=== PATIENT | male | born 1950 | race Caucasian/White ===

== ENCOUNTER → 2017-10-11 08:08 | Outpatient (CLI) | payer MEDICARE, SELFPAY ==
[2017-10-11 10:18] LABS: AST(SGOT) 10 U/L (15-37); Alanine Aminotransfer ALT/SGPT 15 U/L (16-61); Albumin, Serum 3.8 g/dL (3.2-5.0); Alkaline Phosphatase 64 U/L (45-117); Bilirubin, Direct 0.22 mg/dL (0.00-0.30); Cholesterol 106 mg/dL (200); Globulin 3.5 g/dL (2.2-4.2); High Density Lipoprotein 42 mg/dL; Protein, Total 7.3 g/dL (6.4-8.2); Triglycerides 63 mg/dL; Very Low Density Lipoprotein 13 mg/dL (5-40)
== END ==
PROVIDERS: Family Provider Family Medicine; PCP Family Medicine; Visit Provider Internal Medicine Cardiovascular Disease
DX: E78.5 Hyperlipidemia, unspecified (principal); C61 Malignant neoplasm of prostate; Z79.899 Other long term (current) drug therapy
CPT/HCPCS: 36415; 80061; 80076; 84153

== ENCOUNTER → 2017-11-05 10:48 | Outpatient (CLI) | payer MEDICARE, SELFPAY | PROVIDERS: Family Provider Family Medicine; PCP Family Medicine; Visit Provider Urology | DX: R97.20 Elevated prostate specific antigen [PSA] (principal) | CPT/HCPCS: 36415; 84153 ==

== ENCOUNTER → 2018-02-07 09:06 | Outpatient (CLI) | payer MEDICARE, SELFPAY | PROVIDERS: Family Provider Family Medicine; PCP Family Medicine; Referring Provider Urology; Visit Provider Urology | DX: R97.20 Elevated prostate specific antigen [PSA] (principal); C61 Malignant neoplasm of prostate | CPT/HCPCS: 36415; 84153 ==

== ENCOUNTER → 2018-08-06 10:20 | Outpatient (CLI) | payer MEDICARE, SELFPAY ==
[2018-03-05 14:08] VITALS: BMI 25.4
[2018-08-06 13:18] LABS: AST(SGOT) 19 U/L (15-37); Alanine Aminotransfer ALT/SGPT 20 U/L (16-61); Albumin, Serum 4.1 g/dL (3.2-5.0); Alkaline Phosphatase 56 U/L (45-117); Bilirubin, Direct 0.25 mg/dL (0.00-0.30); Cholesterol 130 mg/dL (200); Globulin 3.3 g/dL (2.2-4.2); High Density Lipoprotein 46 mg/dL; Protein, Total 7.4 g/dL (6.4-8.2); Triglycerides 83 mg/dL; Very Low Density Lipoprotein 17 mg/dL (5-40)
[2018-08-06 13:23] LABS: PSA,Total- Diagnostic 7.03 ng/mL (0.0-4.0)
== END ==
PROVIDERS: Internal Medicine Cardiovascular Disease; Family Provider Family Medicine; PCP Family Medicine; Referring Provider Urology; Visit Provider Urology
DX: R97.20 Elevated prostate specific antigen [PSA] (principal); C61 Malignant neoplasm of prostate; I10 Essential (primary) hypertension; E78.5 Hyperlipidemia, unspecified; R00.2 Palpitations; I25.10 Atherosclerotic heart disease of native coronary artery without angina pectoris; Z95.5 Presence of coronary angioplasty implant and graft
CPT/HCPCS: 36415; 80061; 80076; 84153

== ENCOUNTER → 2019-01-27 09:01 | Outpatient (CLI) | payer MEDICARE, SELFPAY ==
[2018-03-05 14:08] VITALS: BMI 25.4
[2019-01-27 12:36] LABS: AST(SGOT) 13 U/L (15-37); Alanine Aminotransfer ALT/SGPT 17 U/L (16-61); Alkaline Phosphatase 62 U/L (45-117); Bilirubin, Direct 0.22 mg/dL (0.00-0.30); Cholesterol 129 mg/dL (200); Globulin 3.3 g/dL (2.2-4.2); High Density Lipoprotein 46 mg/dL; Protein, Total 7.3 g/dL (6.4-8.2); Triglycerides 79 mg/dL; Very Low Density Lipoprotein 16 mg/dL (5-40)
[2019-01-27 12:50] LABS: Anion Gap 5 (5-15); BUN 20 mg/dL (7-18); BUN/Creat Ratio 17.7 RATIO (10-20); Calcium,Total 9.1 mg/dL (8.5-10.1); Chloride 106 mmol/L (98-107); Creatinine, Serum 1.13 mg/dL (0.70-1.30); EST Glomerular Filtration Rate 68 mL/min (>60); Est Glom Filt Rate - Afr Amer 82 mL/min (>60); Glucose 83 mg/dL (74-106); PSA,Total- Diagnostic 9.36 ng/mL (0.0-4.0); Sodium Level 140 mmol/L (136-145); Thyroid Stim Hormone (TSH) 3.59 uIU/mL (0.358-3.74)
== END ==
PROVIDERS: Internal Medicine Cardiovascular Disease; Family Provider Family Medicine; PCP Family Medicine; Referring Provider Urology; Visit Provider Urology
DX: R97.20 Elevated prostate specific antigen [PSA] (principal); C61 Malignant neoplasm of prostate; I25.10 Atherosclerotic heart disease of native coronary artery without angina pectoris; E03.9 Hypothyroidism, unspecified
CPT/HCPCS: 80048; 80061; 80076; 84153; 84443

== ENCOUNTER → 2019-09-02 09:24 | Outpatient (CLI) | payer MEDICARE, SELFPAY ==
[2019-02-27 08:08] VITALS: BMI 26.0
[2019-09-02 12:19] LABS: PSA,Total - Annual Screen 8.17 ng/mL (0.00-4.00)
[2019-09-02 12:20] LABS: AST(SGOT) 15 U/L (15-37); Alanine Aminotransfer ALT/SGPT 22 U/L (16-61); Albumin, Serum 4.1 g/dL (3.2-5.0); Alkaline Phosphatase 68 U/L (45-117); Bilirubin, Direct 0.16 mg/dL (0.00-0.30); Cholesterol 138 mg/dL (200); Globulin 3.5 g/dL (2.2-4.2); High Density Lipoprotein 49 mg/dL; Protein, Total 7.6 g/dL (6.4-8.2); Triglycerides 91 mg/dL; Very Low Density Lipoprotein 18 mg/dL (5-40)
== END ==
PROVIDERS: Internal Medicine Cardiovascular Disease; PCP Family Medicine; Referring Provider Urology; Visit Provider Urology
DX: Z12.5 Encounter for screening for malignant neoplasm of prostate (principal); E78.00 Pure hypercholesterolemia, unspecified; E78.5 Hyperlipidemia, unspecified
CPT/HCPCS: 36415; 80061; 80076; 84153; G0103

== ENCOUNTER → 2020-01-06 17:39 | Outpatient (CLI) | payer MEDICARE, SELFPAY ==
[2019-02-27 08:08] VITALS: BMI 26.0
[2020-01-06 17:42] LABS: Bacteria 0 SEEN /hpf (None Seen); Mucous, Urine 0 SEEN /hpf (<or=2+); Red Blood Cells-Urine 0 SEEN /hpf (0-5); Squamous Epithelial Cells - UA 0 SEEN /hpf (0-5); White Blood Cells 0 SEEN /hpf (0-5)
[2020-01-06 18:15] LABS: Color, Urine Yellow (Yellow); Glucose, Dipstick Normal (Normal); Ketone-Dipstick 5 mg/dl (Negative); Leukocyte Esterase-Dipstick 25 /ul (Negative); Nitrite-Dipstick Negative (Negative); Occult Blood-Urine 25 /ul (Negative); Protein-Dipstick Negative (Negative); Specific Gravity, Urine 1.015 (1.002-1.030); Urine Bilirubin Dipstick Negative (Negative); Urine Clarity Clear (Clear); Urine Urobilinogen Normal (Normal)
== END ==
PROVIDERS: Visit Provider Family Medicine
DX: N39.0 Urinary tract infection, site not specified (principal)
CPT/HCPCS: 81001; 87086

== ENCOUNTER → 2020-03-01 08:29 | Outpatient (CLI) | payer MEDICARE, SELFPAY ==
[2019-02-27 08:08] VITALS: BMI 26.0
[2020-03-01 10:39] LABS: AST(SGOT) 17 U/L (15-37); Alanine Aminotransfer ALT/SGPT 20 U/L (16-61); Albumin, Serum 3.9 g/dL (3.2-5.0); Alkaline Phosphatase 65 U/L (45-117); Bilirubin, Direct 0.23 mg/dL (0.00-0.30); Cholesterol 136 mg/dL (200); Globulin 3.4 g/dL (2.2-4.2); High Density Lipoprotein 53 mg/dL; Protein, Total 7.3 g/dL (6.4-8.2); Triglycerides 86 mg/dL; Very Low Density Lipoprotein 17 mg/dL (5-40)
[2020-03-01 10:55] LABS: PSA,Total- Diagnostic 8.04 ng/mL (0.0-4.0)
== END ==
PROVIDERS: Internal Medicine Cardiovascular Disease; Urology; PCP Family Medicine; Referring Provider Family Medicine; Visit Provider Family Medicine
DX: C61 Malignant neoplasm of prostate (principal); R97.20 Elevated prostate specific antigen [PSA]; E78.00 Pure hypercholesterolemia, unspecified; E78.5 Hyperlipidemia, unspecified
CPT/HCPCS: 36415; 80061; 80076; 84153; 84443

== ENCOUNTER → 2020-05-03 09:04 | Outpatient (CLI) | payer MEDICARE, SELFPAY ==
[2020-03-04 09:23] VITALS: BMI 26.0
[2020-05-06 09:01] LABS: Thyroid Stim Immunoglob <0.10 IU/L (0.00-0.55)
== END ==
PROVIDERS: PCP Family Medicine; Referring Provider Family Medicine; Visit Provider Family Medicine
DX: E03.9 Hypothyroidism, unspecified (principal)
CPT/HCPCS: 36415; 84445

== ENCOUNTER → 2020-09-30 10:13 | Outpatient (CLI) | payer MEDICARE, SELFPAY ==
[2020-03-04 09:23] VITALS: BMI 26.0
[2020-09-30 12:17] LABS: AST(SGOT) 18 U/L (15-37); Alanine Aminotransfer ALT/SGPT 21 U/L (16-61); Alkaline Phosphatase 78 U/L (45-117); Bilirubin, Direct 0.33 mg/dL (0.00-0.30); Cholesterol 122 mg/dL (200); Globulin 3.5 g/dL (2.2-4.2); High Density Lipoprotein 49 mg/dL; Protein, Total 7.5 g/dL (6.4-8.2); Triglycerides 50 mg/dL; Very Low Density Lipoprotein 10 mg/dL (5-40)
[2020-09-30 12:20] LABS: PSA,Total- Diagnostic 8.15 ng/mL (0.0-4.0)
[2020-09-30 12:26] LABS: Thyroid Stim Hormone (TSH) 4.53 uIU/mL (0.358-3.74)
== END ==
PROVIDERS: Internal Medicine Cardiovascular Disease; PCP Family Medicine; Referring Provider Nurse Practitioner Adult Health; Visit Provider Nurse Practitioner Adult Health
DX: C61 Malignant neoplasm of prostate (principal); E03.9 Hypothyroidism, unspecified; E78.00 Pure hypercholesterolemia, unspecified; E78.5 Hyperlipidemia, unspecified
CPT/HCPCS: 36415; 80061; 80076; 84153; 84443

== ENCOUNTER → 2021-01-05 10:15 | Outpatient (CLI) | payer MEDICARE, SELFPAY ==
[2021-01-05 12:18] LABS: Absolute Lymphocyte Count 1.61 X10^3/uL (0.83-4.51); Absolute Neutrophil Count 2.4 X10^3/uL (2.0-7.7); Basophil# 0.02 X10^3/uL; Basophil% 0.4 % (0-1); Eosinophil# 0.18 X10^3/uL; Eosinophils% 3.8 % (0-5); Hematocrit 46.4 % (40-54); Hemoglobin 14.9 g/dL (13.0-16.5); Lymphocyte # 1.61 X10^3/ul (0.83-4.51); Lymphocyte % 33.6 % (19-41); Mean Corp Hgb Conc 32.1 g/dL (32-36); Mean Corpuscular Hgb 30.3 pg (27.0-32.0); Mean Corpuscular Volume 94.3 fL (80-94); Mean Platelet Vol. 11.8 fl (6.2-12.0); Monocyte# 0.53 X10^3/uL; Monocyte% 11.1 % (0-10); NRBC Flagged by Analyzer 0 % (0-5); Neutrophil # 2.44 X10^3/uL (2.7-7.7); Neutrophil % 50.9 % (47-70); Platelet Count 131 K/mm3 (150-450); RBC Distribution Width CV 12.1 % (11.6-14.6); RBC Distribution Width SD 41.8 fl (35.1-43.9); Red Blood Count 4.92 M/mm3 (4.6-6.2); White Blood Count 4.8 K/mm3 (4.4-11.0)
[2021-01-05 12:33] LABS: Vitamin B12 313 pg/mL (211-911)
[2021-01-05 13:24] LABS: ALB/GLOB Ratio 1.1 RATIO (0.9-2.4); AST(SGOT) 14 U/L (15-37); Alanine Aminotransfer ALT/SGPT 22 U/L (16-61); Albumin, Serum 3.8 g/dL (3.2-5.0); Alkaline Phosphatase 72 U/L (45-117); Anion Gap 5 (5-15); BUN 21 mg/dL (7-18); BUN/Creat Ratio 22.1 RATIO (10-20); Calcium,Total 8.5 mg/dL (8.5-10.1); Chloride 106 mmol/L (98-107); Creatinine, Serum 0.95 mg/dL (0.70-1.30); EST Glomerular Filtration Rate 83 mL/min (>60); Est Glom Filt Rate - Afr Amer 100 mL/min (>60); Globulin 3.5 g/dL (2.2-4.2); Glucose 89 mg/dL (74-106); Protein, Total 7.3 g/dL (6.4-8.2); Sodium Level 140 mmol/L (136-145); Thyroid Stim Hormone (TSH) 8.03 uIU/mL (0.358-3.74)
== END ==
PROVIDERS: PCP Family Medicine; Referring Provider Family Medicine; Visit Provider Family Medicine
DX: E03.9 Hypothyroidism, unspecified (principal); G62.9 Polyneuropathy, unspecified
CPT/HCPCS: 36415; 80053; 82607; 82746; 84443; 85025

== ENCOUNTER → 2021-03-01 08:15 | Outpatient (CLI) | payer MEDICARE, SELFPAY ==
[2021-03-01 11:03] LABS: AST(SGOT) 18 U/L (15-37); Alanine Aminotransfer ALT/SGPT 21 U/L (16-61); Albumin, Serum 3.6 g/dL (3.2-5.0); Alkaline Phosphatase 75 U/L (45-117); Bilirubin, Direct 0.17 mg/dL (0.00-0.30); Cholesterol 117 mg/dL (200); Globulin 3.3 g/dL (2.2-4.2); High Density Lipoprotein 44 mg/dL; Protein, Total 6.9 g/dL (6.4-8.2); Triglycerides 54 mg/dL; Very Low Density Lipoprotein 11 mg/dL (5-40)
[2021-03-01 11:10] LABS: PSA,Total- Diagnostic 8.77 ng/mL (0.0-4.0)
== END ==
PROVIDERS: PCP Family Medicine; Referring Provider Internal Medicine Cardiovascular Disease; Visit Provider Internal Medicine Cardiovascular Disease
DX: N40.1 Benign prostatic hyperplasia with lower urinary tract symptoms (principal); E78.00 Pure hypercholesterolemia, unspecified
CPT/HCPCS: 36415; 80061; 80076; 84153

== ENCOUNTER 2021-05-12 15:03 | Outpatient (CLI) | payer MEDICARE, SELFPAY ==
[2021-05-12 18:26] LABS: Free T3 2.6 pg/mL (2.18-3.98); T4 Free Direct 1.25 ng/dL (0.76-1.46); Thyroid Stim Hormone (TSH) 1.98 uIU/mL (0.358-3.74)
== END 2021-05-12 23:59 | disposition short-term general hospital (02) ==
PROVIDERS: PCP Family Medicine; Referring Provider Family Medicine; Visit Provider Family Medicine
DX: E03.9 Hypothyroidism, unspecified (principal)
CPT/HCPCS: 36415; 84439; 84443; 84481

== ENCOUNTER → 2021-09-28 | Outpatient (CLI) | payer MEDICARE, SELFPAY ==
[2021-09-28 12:41] LABS: AST(SGOT) 12 U/L (15-37); Alanine Aminotransfer ALT/SGPT 17 U/L (16-61); Alkaline Phosphatase 69 U/L (45-117); Cholesterol 189 mg/dL (200); Globulin 3.3 g/dL (2.2-4.2); High Density Lipoprotein 44 mg/dL; Protein, Total 7.3 g/dL (6.4-8.2); Triglycerides 86 mg/dL; Very Low Density Lipoprotein 17 mg/dL (5-40)
== END | disposition home or self-care (01) ==
LOC: MTLAB 10:05
PROVIDERS: Internal Medicine Cardiovascular Disease; PCP Family Medicine; Referring Provider Family Medicine; Visit Provider Family Medicine
DX: E78.00 Pure hypercholesterolemia, unspecified (principal)
CPT/HCPCS: 36415; 80061; 80076

== ENCOUNTER → 2022-03-15 | Outpatient (CLI) | payer MEDICARE, SELFPAY ==
[2022-03-15 10:52] LABS: AST(SGOT) 18 U/L (15-37); Alanine Aminotransfer ALT/SGPT 25 U/L (16-61); Albumin, Serum 3.9 g/dL (3.2-5.0); Alkaline Phosphatase 66 U/L (45-117); Anion Gap 6 (5-15); BUN 20 mg/dL (7-18); BUN/Creat Ratio 20.1 RATIO (10-20); Bilirubin, Direct 0.26 mg/dL (0.00-0.30); Calcium,Total 8.8 mg/dL (8.5-10.1); Chloride 105 mmol/L (98-107); Cholesterol 145 mg/dL (200); EST Glomerular Filtration Rate 78 mL/min (>60); Est Glom Filt Rate - Afr Amer 95 mL/min (>60); Globulin 3.1 g/dL (2.2-4.2); Glucose 92 mg/dL (74-106); High Density Lipoprotein 54 mg/dL; Potassium 5.1 mmol/L (3.5-5.1); Sodium Level 139 mmol/L (136-145); Triglycerides 80 mg/dL; Very Low Density Lipoprotein 16 mg/dL (5-40)
== END | disposition home or self-care (01) ==
LOC: MTLAB 09:08
PROVIDERS: Internal Medicine Cardiovascular Disease; PCP Family Medicine; Referring Provider Urology; Visit Provider Urology
DX: Z00.00 Encounter for general adult medical examination without abnormal findings (principal); N40.0 Benign prostatic hyperplasia without lower urinary tract symptoms; E78.00 Pure hypercholesterolemia, unspecified
CPT/HCPCS: 36415; 80048; 80061; 80076; 84153; G0103

== ENCOUNTER → 2022-04-11 | Outpatient (CLI) | payer MEDICARE, SELFPAY ==
--- NOTE | 2022-04-11 16:45 | MRI_ITS ---
STUDY: MR PELVIS WITH T WITHOUT CONTRAST REASON FOR EXAM: Male, 72 years old. ELEVATED PROSTATE SPECIFIC ANTIGEN TECHNIQUE: Standardized fat and water weighted pulse sequences were obtained in all 3 orthogonal planes, pre-and post contrast administration. w /wo 17ml Clariscan contrast material was administered intravenously for the contrast portion of the examination. COMPARISON: None. FINDINGS: Normal urinary bladder. Normal visualized colon. Prostate gland: The anterior fibromuscular stroma and central zone appear intact. The central gland demonstrates heterogeneous cystic signal characteristics. Rectum is unremarkable. Levator ani muscle is not disrupted. The distal urethra is surrounded by the low T2 signal intensity muscle which is the external urethral sphincter as noted on the coronal images. The penile bulb is embraced by an intact inferomedial levator ani muscle. No areas of abnormal enhancement. Normal visualized neurovascular bundles. Enlarged prostate gland. There is no pelvic fluid. There is no pelvic mass lesion or lymphadenopathy. There is a right inguinal hernia containing fat. Normal visualized pelvic arteries. There are diffuse degenerative changes of the visualized lumbar spine. There is a left inguinal hernia containing fat. MRI/Pelvis W/WO Contrast IMPRESSION: Enlarged prostate gland with appearance of benign prostatic hypertrophy. No prostate mass noted. Electronically Signed: Mason Evans MD at 19:20 [facility] Reading Location ID and State: [facility] / [place] , Service support ,
== END | disposition home or self-care (01) ==
LOC: MRI 16:04
PROVIDERS: PCP Family Medicine; Referring Provider Urology; Visit Provider Urology
DX: R97.20 Elevated prostate specific antigen [PSA] (principal)
CPT/HCPCS: 72197; A9575

== ENCOUNTER → 2022-10-05 | Outpatient (CLI) | payer MEDICARE, SELFPAY | END | disposition home or self-care (01) | LOC: MTLAB 10:08 | PROVIDERS: PCP Family Medicine; Referring Provider Urology; Visit Provider Urology | DX: C61 Malignant neoplasm of prostate (principal) | CPT/HCPCS: 36415; 84153 ==

== ENCOUNTER → 2023-03-22 | Outpatient (CLI) | payer MEDICARE, SELFPAY ==
[2023-03-22 11:04] LABS: ALB/GLOB Ratio 1.2 RATIO (0.9-2.4); AST(SGOT) 15 U/L (15-37); Alanine Aminotransfer ALT/SGPT 23 U/L (16-61); Albumin, Serum 3.9 g/dL (3.2-5.0); Alkaline Phosphatase 65 U/L (45-117); Anion Gap 5 (5-15); BUN 21 mg/dL (7-18); BUN/Creat Ratio 21.8 RATIO (10-20); Calcium,Total 8.6 mg/dL (8.5-10.1); Chloride 107 mmol/L (98-107); Cholesterol 129 mg/dL (200); Creatinine, Serum 0.96 mg/dL (0.70-1.30); EST Glomerular Filtration Rate 81 mL/min (>60); Est Glom Filt Rate - Afr Amer 98 mL/min (>60); Globulin 3.3 g/dL (2.2-4.2); Glucose 88 mg/dL (74-106); High Density Lipoprotein 46 mg/dL; Potassium 4.5 mmol/L (3.5-5.1); Protein, Total 7.2 g/dL (6.4-8.2); Sodium Level 141 mmol/L (136-145); T4 Free Direct 1.57 ng/dL (0.76-1.46); Thyroid Stim Hormone (TSH) 0.01 uIU/mL (0.358-3.74); Triglycerides 83 mg/dL; Very Low Density Lipoprotein 17 mg/dL (5-40)
== END | disposition home or self-care (01) ==
LOC: MTLAB 09:12
PROVIDERS: PCP Family Medicine; Referring Provider Family Medicine; Visit Provider Family Medicine
DX: C61 Malignant neoplasm of prostate (principal); E03.9 Hypothyroidism, unspecified; E78.00 Pure hypercholesterolemia, unspecified
CPT/HCPCS: 36415; 80053; 80061; 84153; 84439; 84443; 84481

== ENCOUNTER → 2023-06-25 | Outpatient (CLI) | payer MEDICARE, SELFPAY ==
--- OUTSIDE RECORDS SUMMARY | 2023-06-25 09:57 | XMS RPT_ITS | CCD ---
Author Name Unknown Address [address] [place] [id number] Organization [facility] Care Team Providers Care [employer] Manager Name Role Phone Clau Sevilla Carson Unavailable Unavailable Kamila RN, Chela Harrison Unavailable Unavailable Kamila RN, Chela Harrison Unavailable Unavailable Kamila RN, Chela Harrison Unavailable Unavailable MD Anastacio, Chava Mckenzie Unavailable Medications Completed/Discontinued Medications Medication Drug Class(es) Dates Sig (Normalized) Sig (Original) aspirin 81 mg oral tablet (15 sources) Platelet Aggregation Inhibitor, Nonsteroidal Anti-inflammatory Drug Start: 08-19-2010 take 1 tablet by mouth once daily ASPIRIN 325 MG TABS One tablet by mouth daily ASPIRIN [id number] Glo Mclaughlin Problems Active Problems Problem Classification Problem Date Documented Date Episodic/Chronic Coronary atherosclerosis and other heart disease (10 sources) Atherosclerotic heart disease of [place] coronary artery without angina pectoris; Translations: [Coronary atherosclerosis] Onset: 08-19-2010 02-23-2016 Chronic Disorders of lipid metabolism (5 sources) Hyperlipidemia; Translations: [Hyperlipidemia, unspecified] Onset: 08-19-2010 08-19-2010 Chronic Essential hypertension (5 sources) Hypertensive disorder; Translations: [Essential (primary) hypertension] Onset: 08-19-2010 08-19-2010 Chronic Unclassified (4 sources) Placement of stent in coronary artery ; Translations: [Presence of coronary angioplasty implant and graft] Onset: 08-19-2010 02-23-2016 Unclassified (2 sources) Long-term drug therapy; 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] Onset: 08-19-2010 08-19-2010 Past or Other Problems Problem Classification Problem Date Documented Da te Episodic/Chronic Cardiac dysrhythmias (5 sources) Palpitations; Translations: [Palpitations] Onset: 08-19-2010 08-19-2010 Episodic Coronary atherosclerosis and other heart disease (10 sources) Presence of coronary angioplasty implant and graft; Translations: [Coronary angioplasty status] Onset: 08-19-2010 02-24-2015 Episodic Nonspecific chest pain (5 sources) Tight chest; Translations: [Other chest pain] Onset: 02-14-2016 02-14-2016 Episodic Other aftercare (3 sources) Other group home (current) drug therapy; Translations: [Other group home (current) drug therapy] Onset: 08-19-2010 08-19-2010 Episodic Other nutritional; endocrine; and metabolic disorders (5 sources) Body mass index (BMI) 25.0-25.9, adult; Translations: [Body mass index (BMI) 25.0-25.9, adult] Onset: 02-14-2016 02-14-2016 Episodic Other screening for suspected conditions (not mental disorders or infectious disease) (10 sources) Cardiovascular stress test abnormal; Translations: [Abnormal result of other cardiovascular function study] Onset: 01-21-2013 Resolved: 02-24-2015 02-24-2015 Episodic Residual codes; unclassified (10 sources) FH: Hypertension; Translations: [Family history of ischemic heart disease and other diseases of the circulatory system] Resolved: 02-24-2015 02-24-2015 Episodic Results Test Name Value Interpretation Reference Range Facil ity Vital Signs Date Time Vital Sign Value Performing Clinician Jessica johnson 02-24-2016 08:54-0400 BMI (Body Mass Index) 25.22 kg/m2 MD [facility] Work Phone: 02-24-2016 08:54-0400 BP Diastolic 78 mm[Hg] MD [facility] Work Phone: 02-24-2016 08:54-0400 BP Systolic 122 mm[Hg] MD [facility] Work Phone: 02-24-2016 08:54-0400 BSA (Body Surface Area) 2.07 m2 MD [facility] Work Phone: 02-24-2016 08:54-0400 Height 182.88 cm MD [facility] Work Phone: 02-24-2016 08:54-0400 Pulse (Heart Rate) 54 /min Chava Chaves MD [facility] Work Phone: 02-24-2016 08:54-0400 Respiratory Rate 16 /min Chava Chaves MD [facility] Work Phone: 02-24-2016 08:54-0400 Weight 84.37 kg MD [facility] Work Phone: 02-14-2016 10:22-0400 Heart rate 59 /min MD [facility] Work Phone: 02-14-2016 09:42-0400 BP Diastolic 92 mm[Hg] MD [facility] Work Phone: 02-14-2016 09:42-0400 BP Systolic 162 mm[Hg] Chava Chaves MD [facility] Work Phone: 01-21-2013 14:20-0400 Heart rate 410 ms MD [facility] Work Phone: Procedures Date Procedure Procedure Detail Performing Clinician Start: 04-04-2017 End: 04-04-2017 *Hepatic Function Panel Dominga English Start: 04-04-2017 End: 04-04-2017 Lipid 1996 panel - Serum or Plasma Chava Chaves MD Start: 04-04-2017 End: 04-04-2017 *Hepatic Function Panel Dominga English Start: 04-04-2017 End: 04-04-2017 Lipid panel [AGGREGATE] Dominga English Start: 09-19-2016 End: 10-04-2016 *Hepatic Function Panel Dominga English Start: 09-19-2016 End: 10-04-2016 Lipid 1996 panel - Serum or Plasma Chava Chaves MD Start: 09-19-2016 End: 10-04-2016 *Hepatic Function Panel Dominga English Start: 09-19-2016 End: 10-04-2016 Lipid panel [AGGREGATE] Dominga English Start: 03-22-2016 End: 03-22-2016 *Hepatic Function Panel Dominga English Start: 03-22-2016 End: 03-22-2016 Lipid 1996 panel - Serum or Plasma Chava Chaves MD Start: 03-22-2016 End: 03-22-2016 *Hepatic Function Panel Dominga English Start: 03-22-2016 End: 03-22-2016 Lipid panel [AGGREGATE] Dominga English Start: 02-24-2016 End: 03-09-2017 Follow Up Appt 6 months Dominga English Start: 02-24-2016 End: 03-09-2017 MMDominga Chaves MD Start: 02-24-2016 End: 03-09-2017 Follow Up Appt 6 months Dominga English Start: 02-24-2016 End: 03-09-2017 MMM Chava Chaves MD Start: 02-14-2016 End: 02-14-2016 ACCOUNT STRATEGIST Miranda Meraz TRAIN OPERATIONS SUPERVISOR Work Phone: Start: 02-14-2016 End: 02-14-2016 Follow Up Appt Vannesa Meraz TRAIN OPERATIONS SUPERVISOR Work Phone: Start: 02-14-2016 End: 02-14-2016 ACCOUNT STRATEGIST Miranda Meraz TRAIN OPERATIONS SUPERVISOR Work Phone: Start: 02-14-2016 End: 02-14-2016 Follow Up Appt Vannesa Meraz TRAIN OPERATIONS SUPERVISOR Work Phone: Start: 09-13-2015 End: 03-22-2016 *Hepatic Function Panel Dominga English Start: 09-13-2015 End: 03-22-2016 Lipid 1996 panel - Serum or Plasma Chava Chaves MD Start: 09-13-2015 End: 03-22-2016 *Hepatic Function Panel Dominga English Start: 09-13-2015 End: 03-22-2016 Lipid panel [AGGREGATE] Dominga English Start: 03-01-2015 End: 03-12-2015 *Hepatic Function Panel Dominga English Start: 03-01-2015 End: 03-12-2015 Lipid 1996 panel - Serum or Plasma Chava Chaves MD Start: 03-01-2015 End: 03-12-2015 *Hepatic Function Panel Dominga English Start: 03-01-2015 End: 03-12-2015 Lipid panel [AGGREGATE] Dominga English Start: 02-25-2015 End: 02-25-2015 RAÚL Chaves MD Start: 02-25-2015 End: 02-26-2015 Documentation of current medications Chava Chaves MD Start: 02-25-2015 End: 02-25-2015 Follow Up Appt 1 year Chava Chaves MD Start: 02-25-2015 End: 02-25-2015 RAÚL Chaves MD Start: 02-25-2015 End: 02-26-2015 Documentation of current medications Chava Chaves MD Start: 02-25-2015 End: 02-25-2015 Follow Up Appt 1 year Chava Chaves MD Start: 08-21-2014 End: 08-28-2014 *Hepatic Function Panel Dominga English Start: 08-21-2014 End: 08-28-2014 Lipid 1996 panel - Serum or Plasma Chava Chaves MD Start: 08-21-2014 End: 08-28-2014 *Hepatic Function Panel Dominga English Start: 08-21-2014 End: 08-28-2014 Lipid panel [AGGREGATE] Dominga English Start: 02-27-2014 End: 02-27-2014 RAÚL Chaves MD Start: 02-27-2014 End: 02-27-2014 Follow Up Appt 1 year Chava Chaves MD Start: 02-27-2014 End: 02-27-2014 RAÚL Chaves MD Start: 02-27-2014 End: 02-27-2014 Follow Up Appt 1 year Chava Chaves MD Start: 01-21-2014 End: 02-25-2014 *Hepatic Function Panel Merna brandon PA-C Work Phone: Start: 01-21-2014 End: 02-25-2014 Lipid 1996 panel - Serum or Plasma Merna Riley PA-C Work Phone: Start: 01-21-2014 End: 02-25-2014 *Hepatic Function Panel Merna brandon PA-C Work Phone: Start: 01-21-2014 End: 02-25-2014 Lipid panel [AGGREGATE] Merna brandon PA-C Work Phone: Start: 06-21-2013 End: 07-29-2013 *Hepatic Function Panel Merna brandon PA-C Work Phone: Start: 06-21-2013 End: 07-29-2013 Lipid 1996 panel - Serum or Plasma Merna Riley PA-C Work Phone: Start: 06-21-2013 End: 07-29-2013 *Hepatic Function Panel Merna brandon PA-C Work Phone: Start: 06-21-2013 End: 07-29-2013 Lipid panel [AGGREGATE] Merna brandon PA-C Work Phone: Start: 01-23-2013 End: 02-14-2016 Left Heart Cath Davion Delgado MD Work Phone: Start: 01-23-2013 End: 02-14-2016 Left Heart Cath Davion Delgado MD Work Phone: Start: 01-21-2013 End: 08-28-2014 *BMP Davion Delgado MD Work Phone: Start: 01-21-2013 End: 08-28-2014 CBC W Auto Differential panel - Blood Davion Delgado MD Work Phone: Start: 01-21-2013 End: 02-14-2016 Chest x-ray Davion Delgado MD Work Phone: Start: 01-21-2013 End: 02-14-2016 Ecg routine ecg w/least 12 lds w/i&r Davion Delgado MD Work Phone: Start: 01-21-2013 End: 08-28-2014 INR in Platelet poor plasma by Coagulation assay Davion Delgado MD Work Phone: Start: 01-21-2013 End: 01-21-2013 Nurse, Teaching, Wound Check (no charge) Chava Chaves MD Start: 01-21-2013 End: 08-28-2014 *BMP Davion Delgado MD Work Phone: Start: 01-21-2013 End: 08-28-2014 CBC W Auto Differential panel - Blood Davion Delgado MD Work Phone: Start: 01-21-2013 End: 02-14-2016 Chest x-ray Davion Delgado MD Work Phone: Start: 01-21-2013 End: 08-28-2014 Coagulation factor induced.INR assay in platelet poor plasma Davion Delgado MD Work Phone: Start: 01-21-2013 End: 02-14-2016 Electrocardiogram, complete Davion Delgado MD Work Phone: Start: 01-21-2013 End: 01-21-2013 Nurse, Teaching, Wound Check (no charge) Chava Chaves MD Start: 01-03-2013 End: 01-03-2013 Follow Up Appt 6 months Dominga English Start: 01-03-2013 End: 01-03-2013 GABRIELA Chaves MD Start: 01-03-2013 End: 01-21-2013 Nuclear stress test -exercise Chava Chaves MD Start: 01-03-2013 End: 01-03-2013 Follow Up Appt 6 months Dominga English Start: 01-03-2013 End: 01-03-2013 GABRIELA Chaves MD Start: 01-03-2013 End: 01-21-2013 Nuclear stress test -exercise Chava Chaves MD Start: 12-22-2012 End: 12-31-2012 *Hepatic Function Panel Merna brandon PA-C Work Phone: Start: 12-22-2012 End: 12-31-2012 Lipid 1996 panel - Serum or Plasma Merna Riley PA-C Work Phone: Start: 12-22-2012 End: 12-31-2012 *Hepatic Function Panel Merna brandon PA-C Work Phone: Start: 12-22-2012 End: 12-31-2012 Lipid panel [AGGREGATE] Merna brandon PA-C Work Phone: Start: 06-05-2012 End: 07-19-2012 *Hepatic Function Panel Cirilo Brito MD Start: 06-05-2012 End: 07-19-2012 Lipid 1996 panel - Serum or Plasma Cirilo Brito MD Start: 06-05-2012 End: 07-19-2012 *Hepatic Function Panel Cirilo Brito MD Start: 06-05-2012 End: 07-19-2012 Lipid panel [AGGREGATE] Cirilo Brito MD Start: 12-11-2011 End: 12-11-2011 Follow Up Appt 1 year Cirilo Brito MD Start: 12-11-2011 End: 12-11-2011 Follow Up Appt 1 year Cirilo Brito MD Start: 08-19-2010 Placement of stent in coronary artery Status post cardiac stent placement Chava Chaves MD Plan of Treatment Date Care Activity Detail Author Start: 04-12-2017 End: 04-12-2017 Appointment Appointment [facility] Work Phone: Start: 04-04-2017 End: 04-04-2017 *Hepatic Function Panel *Hepatic Function Panel [facility] Work Phone: Start: 04-04-2017 End: 04-04-2017 Lipid panel [AGGREGATE] *Lipid Profile CC PCP [facility] Work Phone: Start: 04-04-2017 End: 04-04-2017 *Hepatic Function Panel *Hepatic Function Panel [facility] Work Phone: Start: 04-04-2017 End: 04-04-2017 Lipid panel [AGGREGATE] *Lipid Profile CC PCP [facility] Work Phone: Start: 09-19-2016 End: 10-04-2016 *Hepatic Function Panel *Hepatic Function Panel [facility] Work Phone: Start: 09-19-2016 End: 10-04-2016 Lipid panel [AGGREGATE] *Lipid Profile CC PCP [facility] Work Phone: Start: 09-19-2016 End: 10-04-2016 *Hepatic Function Panel *Hepatic Function Panel [facility] Work Phone: Start: 09-19-2016 End: 10-04-2016 Lipid panel [AGGREGATE] *Lipid Profile CC PCP [facility] Work Phone: Start: 03-23-2016 End: 03-22-2016 *Hepatic Function Panel *Hepatic Function Panel [facility] Work Phone: Start: 03-23-2016 End: 03-22-2016 Lipid panel [AGGREGATE] *Lipid Profile CC PCP [facility] Work Phone: Start: 03-23-2016 End: 03-22-2016 *Hepatic Function Panel *Hepatic Function Panel [facility] Work Phone: Start: 03-23-2016 End: 03-22-2016 Lipid panel [AGGREGATE] *Lipid Profile CC PCP [facility] Work Phone: Start: 02-24-2016 End: 03-09-2017 Follow Up Appt 6 months Follow Up Appt 6 months [facility] Work Phone: Start: 02-24-2016 End: 03-09-2017 MMM MMM [facility] Work Phone: Start: 02-24-2016 End: 03-09-2017 Follow Up Appt 6 months Follow Up Appt 6 months [facility] Work Phone: Start: 02-24-2016 End: 03-09-2017 MMM MMM [facility] Work Phone: Start: 02-14-2016 End: 02-14-2016 ACCOUNT STRATEGIST ACCOUNT STRATEGIST [facility] Work Phone: Start: 02-14-2016 End: 02-14-2016 Follow Up Appt Other Follow Up Appt Other [facility] Work Phone: Start: 02-14-2016 End: 02-14-2016 ACCOUNT STRATEGIST ACCOUNT STRATEGIST [facility] Work Phone: Start: 02-14-2016 End: 02-14-2016 Follow Up Appt Other Follow Up Appt Other [facility] Work Phone: Start: 09-13-2015 End: 03-22-2016 *Hepatic Function Panel *Hepatic Function Panel [facility] Work Phone: Start: 09-13-2015 End: 03-22-2016 Lipid panel [AGGREGATE] *Lipid Profile CC PCP [facility] Work Phone: Start: 09-13-2015 End: 03-22-2016 *Hepatic Function Panel *Hepatic Function Panel [facility] Work Phone: Start: 09-13-2015 End: 03-22-2016 Lipid panel [AGGREGATE] *Lipid Profile CC PCP [facility] Work Phone: Start: 03-01-2015 End: 03-12-2015 *Hepatic Function Panel *Hepatic Function Panel [facility] Work Phone: Start: 03-01-2015 End: 03-12-2015 Lipid panel [AGGREGATE] *Lipid Profile CC PCP [facility] Work Phone: Start: 03-01-2015 End: 03-12-2015 *Hepatic Function Panel *Hepatic Function Panel [facility] Work Phone: Start: 03-01-2015 End: 03-12-2015 Lipid panel [AGGREGATE] *Lipid Profile CC PCP [facility] Work Phone: Start: 02-25-2015 End: 02-25-2015 ACCOUNT STRATEGIST ACCOUNT STRATEGIST [facility] Work Phone: Start: 02-25-2015 End: 02-25-2015 Follow Up Appt 1 year Follow Up Appt 1 year [facility] Work Phone: Start: 02-25-2015 End: 02-25-2015 ACCOUNT STRATEGIST ACCOUNT STRATEGIST [facility] Work Phone: Start: 02-25-2015 End: 02-25-2015 Follow Up Appt 1 year Follow Up Appt 1 year [facility] Work Phone: Start: 08-21-2014 End: 08-28-2014 *Hepatic Function Panel *Hepatic Function Panel [facility] Work Phone: Start: 08-21-2014 End: 08-28-2014 Lipid panel [AGGREGATE] *Lipid Profile CC PCP [facility] Work Phone: Start: 08-21-2014 End: 08-28-2014 *Hepatic Function Panel *Hepatic Function Panel [facility] Work Phone: Start: 08-21-2014 End: 08-28-2014 Lipid panel [AGGREGATE] *Lipid Profile CC PCP [facility] Work Phone: Start: 02-27-2014 End: 02-27-2014 ACCOUNT STRATEGIST ACCOUNT STRATEGIST [facility] Work Phone: Start: 02-27-2014 End: 02-27-2014 Follow Up Appt 1 year Follow Up Appt 1 year [facility] Work Phone: Start: 02-27-2014 End: 02-27-2014 ACCOUNT STRATEGIST ACCOUNT STRATEGIST [facility] Work Phone: Start: 02-27-2014 End: 02-27-2014 Follow Up Appt 1 year Follow Up Appt 1 year [facility] Work Phone: Start: 01-21-2014 End: 02-25-2014 *Hepatic Function Panel *Hepatic Function Panel [facility] Work Phone: Start: 01-21-2014 End: 02-25-2014 Lipid panel [AGGREGATE] *Lipid Profile CC PCP [facility] Work Phone: Start: 01-21-2014 End: 02-25-2014 *Hepatic Function Panel *Hepatic Function Panel [facility] Work Phone: Start: 01-21-2014 End: 02-25-2014 Lipid panel [AGGREGATE] *Lipid Profile CC PCP [facility] Work Phone: Start: 06-21-2013 End: 07-29-2013 *Hepatic Function Panel *Hepatic Function Panel [facility] Work Phone: Start: 06-21-2013 End: 07-29-2013 Lipid panel [AGGREGATE] *Lipid Profile CC PCP [facility] Work Phone: Start: 06-21-2013 End: 07-29-2013 *Hepatic Function Panel *Hepatic Function Panel [facility] Work Phone: Start: 06-21-2013 End: 07-29-2013 Lipid panel [AGGREGATE] *Lipid Profile CC PCP [facility] Work Phone: Start: 01-23-2013 End: 02-14-2016 Left Heart Cath Left Heart Cath [facility] Work Phone: Start: 01-23-2013 End: 02-14-2016 Left Heart Cath Left Heart Cath [facility] Work Phone: Start: 01-21-2013 End: 08-28-2014 *BMP *BMP [facility] Work Phone: Start: 01-21-2013 End: 08-28-2014 CBC W Auto Differential panel - Blood *CBC without Diff [facility] Work Phone: Start: 01-21-2013 End: 02-14-2016 Chest x-ray X-Ray, Chest, PA & Lateral [facility] Work Phone: Start: 01-21-2013 End: 02-14-2016 Ecg routine ecg w/least 12 lds w/i&r EKG (In office) [facility] Work Phone: Start: 01-21-2013 End: 08-28-2014 INR Coag RelTime (PPP) *PT/INR [facility] Work Phone: Start: 01-21-2013 End: 08-28-2014 *BMP *BMP [facility] Work Phone: Start: 01-21-2013 End: 08-28-2014 CBC W Auto Differential panel - Blood *CBC without Diff [facility] Work Phone: Start: 01-21-2013 End: 02-14-2016 Chest x-ray X-Ray, Chest, PA & Lateral [facility] Work Phone: Start: 01-21-2013 End: 08-28-2014 Coagulation factor induced.INR assay in platelet poor plasma *PT/INR [facility] Work Phone: Start: 01-21-2013 End: 02-14-2016 Electrocardiogram, complete EKG (In office) [facility] Work Phone: Start: 01-03-2013 End: 01-03-2013 Follow Up Appt 6 months Follow Up Appt 6 months [facility] Work Phone: Start: 01-03-2013 End: 01-03-2013 MMM MMM [facility] Work Phone: Start: 01-03-2013 End: 01-03-2013 Nuclear stress test -exercise Nuclear stress test -exercise [facility] Work Phone: Start: 01-03-2013 End: 01-03-2013 Follow Up Appt 6 months Follow Up Appt 6 months [facility] Work Phone: Start: 01-03-2013 End: 01-03-2013 MMM MMM [facility] Work Phone: Start: 01-03-2013 End: 01-03-2013 Nuclear stress test -exercise Nuclear stress test -exercise [facility] Work Phone: Start: 12-22-2012 End: 12-31-2012 *Hepatic Function Panel *Hepatic Function Panel [facility] Work Phone: Start: 12-22-2012 End: 12-31-2012 Lipid panel [AGGREGATE] *Lipid Profile [facility] Work Phone: Start: 12-22-2012 End: 12-31-2012 *Hepatic Function Panel *Hepatic Function Panel [facility] Work Phone: Start: 12-22-2012 End: 12-31-2012 Lipid panel [AGGREGATE] *Lipid Profile [facility] Work Phone: Start: 06-05-2012 End: 07-19-2012 *Hepatic Function Panel *Hepatic Function Panel [facility] Work Phone: Start: 06-05-2012 End: 07-19-2012 Lipid panel [AGGREGATE] *Lipid Profile [facility] Work Phone: Start: 06-05-2012 End: 07-19-2012 *Hepatic Function Panel *Hepatic Function Panel [facility] Work Phone: Start: 06-05-2012 End: 07-19-2012 Lipid panel [AGGREGATE] *Lipid Profile [facility] Work Phone: Start: 12-11-2011 End: 12-11-2011 Follow Up Appt 1 year Follow Up Appt 1 year [facility] Work Phone: Start: 12-11-2011 End: 12-11-2011 Follow Up Appt 1 year Follow Up Appt 1 year [facility] Work Phone: Patient Education [facility] Work Phone: Additional Source Comments FOR RECORDS PERTAINING TO PATIENTS WHO ARE OR HAVE BEEN ENROLLED IN A CHEMICAL DEPENDENCY/SUBSTANCEABUSE PROGRAM, SOME INFORMATION MAY BE OMITTED. This clinical summary was aggregated from multiple sources. Caution should be exercised in using it in the provision of clinical care. This summary normalizes information from multiple sources, and as a consequence, information in this document may materially change the coding, format and clinical context of patient data. In addition, data may be omitted in some cases. CLINICAL DECISIONS SHOULD BE BASED ON THE PRIMARY CLINICAL RECORDS. [facility]. provides no warranty or guarantee of the accuracy or completeness of information in this document.
[2023-06-25 11:15] LABS: Free T3 2.3 pg/mL (2.18-3.98); T4 Free Direct 1.36 ng/dL (0.76-1.46); Thyroid Stim Hormone (TSH) 0.16 uIU/mL (0.358-3.74)
== END | disposition home or self-care (01) ==
PROVIDERS: PCP Family Medicine; Referring Provider Family Medicine; Visit Provider Family Medicine
DX: E03.9 Hypothyroidism, unspecified (principal)
CPT/HCPCS: 36415; 84439; 84443; 84481

== ENCOUNTER → 2023-09-24 | Outpatient (CLI) | payer MEDICARE, SELFPAY | END | disposition home or self-care (01) | PROVIDERS: PCP Family Medicine; Referring Provider Urology; Visit Provider Urology | DX: C61 Malignant neoplasm of prostate (principal) | CPT/HCPCS: 36415; 84153 ==

== ENCOUNTER → 2024-01-02 | Outpatient (CLI) | payer MEDICARE, SELFPAY ==
[2024-01-02 15:40] LABS: ALB/GLOB Ratio 1.1 RATIO (0.9-2.4); AST(SGOT) 14 U/L (15-37); Alanine Aminotransfer ALT/SGPT 21 U/L (16-61); Albumin, Serum 3.9 g/dL (3.2-5.0); Alkaline Phosphatase 84 U/L (45-117); Anion Gap 8 (5-15); BUN 19 mg/dL (7-18); BUN/Creat Ratio 19.8 RATIO (10-20); Calcium,Total 9.2 mg/dL (8.5-10.1); Chloride 105 mmol/L (98-107); Cholesterol 128 mg/dL (200); Creatinine, Serum 0.96 mg/dL (0.70-1.30); EST Glomerular Filtration Rate 81 mL/min (>60); Est Glom Filt Rate - Afr Amer 98 mL/min (>60); Free T3 2.7 pg/mL (2.18-3.98); Globulin 3.4 g/dL (2.2-4.2); Glucose 121 mg/dL (74-106); High Density Lipoprotein 48 mg/dL; Potassium 4.2 mmol/L (3.5-5.1); Protein, Total 7.3 g/dL (6.4-8.2); Sodium Level 139 mmol/L (136-145); T4 Free Direct 1.39 ng/dL (0.76-1.46); Thyroid Stim Hormone (TSH) 0.089 uIU/mL (0.358-3.740); Triglycerides 106 mg/dL; Very Low Density Lipoprotein 21 mg/dL (5-40)
== END | disposition home or self-care (01) ==
LOC: MTLAB 12:32
PROVIDERS: PCP Family Medicine; Referring Provider Family Medicine; Visit Provider Family Medicine
DX: E03.9 Hypothyroidism, unspecified (principal); E78.00 Pure hypercholesterolemia, unspecified
CPT/HCPCS: 36415; 80053; 80061; 84439; 84443; 84481

== ENCOUNTER → 2024-03-24 | Outpatient (CLI) | payer MEDICARE, SELFPAY ==
[2024-03-24 12:51] LABS: Anion Gap 5 (5-15); BUN 20 mg/dL (7-18); BUN/Creat Ratio 21.8 RATIO (10-20); Calcium,Total 8.9 mg/dL (8.5-10.1); Chloride 108 mmol/L (98-107); Cholesterol 122 mg/dL (200); Creatinine, Serum 0.92 mg/dL (0.70-1.30); EST Glomerular Filtration Rate 85 mL/min (>60); Est Glom Filt Rate - Afr Amer 103 mL/min (>60); Free T3 2.6 pg/mL (2.18-3.98); Glucose 98 mg/dL (74-106); High Density Lipoprotein 45 mg/dL; Potassium 4.4 mmol/L (3.5-5.1); Sodium Level 140 mmol/L (136-145); T4 Free Direct 1.75 ng/dL (0.76-1.46); Thyroid Stim Hormone (TSH) 0.159 uIU/mL (0.358-3.740); Triglycerides 84 mg/dL; Very Low Density Lipoprotein 17 mg/dL (5-40)
== END | disposition home or self-care (01) ==
PROVIDERS: PCP Family Medicine; Referring Provider Nurse Practitioner; Visit Provider Nurse Practitioner
DX: C61 Malignant neoplasm of prostate (principal); I10 Essential (primary) hypertension; E03.9 Hypothyroidism, unspecified
CPT/HCPCS: 36415; 80048; 80061; 84153; 84439; 84443; 84481

== ENCOUNTER → 2024-07-07 | Outpatient (CLI) | payer MEDICARE, SELFPAY | END | disposition home or self-care (01) | LOC: MTLAB 09:26 | PROVIDERS: PCP Family Medicine; Referring Provider Nurse Practitioner; Visit Provider Nurse Practitioner | DX: C61 Malignant neoplasm of prostate (principal) | CPT/HCPCS: 36415; 84153 ==

== ENCOUNTER → 2024-09-24 | Outpatient (CLI) | payer MEDICARE, SELFPAY ==
[2024-09-24 13:01] LABS: ALB/GLOB Ratio 1.3 RATIO (0.9-2.4); AST(SGOT) 22 U/L (<=37); Alanine Aminotransfer ALT/SGPT 13 U/L (<=46); Albumin, Serum 4.4 g/dL (3.4-4.8); Alkaline Phosphatase 74 U/L (40-129); Anion Gap 13 (5-15); BUN 21 mg/dL (4-19); BUN/Creat Ratio 22.6 RATIO (10-20); Calcium,Total 9.2 mg/dL (7.6-11.0); Carbon Dioxide 21.9 mmol/L (21.0-32.0); Chloride 105 mmol/L (98-108); Cholesterol 122 mg/dL (<=200); Creatinine, Serum 0.93 mg/dL (0.70-1.20); EST Glomerular Filtration Rate 85 (>60); Free T3 3.4 pg/mL (2.18-3.98); Globulin 3.3 g/dL (2.2-4.2); Glucose 94 mg/dL (70-99); High Density Lipoprotein 43 mg/dL; Low Density Lipoprotein Calc. 65 mg/dL; Potassium 4.3 mmol/L (3.3-5.1); Protein, Total 7.7 g/dL (5.9-8.4); Sodium Level 140 mmol/L (133-145); Thyroid Stim Hormone (TSH) 0.084 uIU/mL (0.300-4.200); Total Bilirubin 1.02 mg/dL (0.00-1.30); Triglycerides 73 mg/dL; Very Low Density Lipoprotein 15 mg/dL (5-40); cholesterol:hdl ratio screen 2.84
[2024-09-24 14:22] LABS: Microalbumin,Random Urine < 12.0 mg/L (NO RANGE EST.); Microalbumin:Creatinine Ratio UNABLE TO CALCULATE mg/g CRE
== END | disposition home or self-care (01) ==
LOC: MTLAB 09:34
PROVIDERS: PCP Family Medicine; Referring Provider Family Medicine; Visit Provider Family Medicine
DX: I10 Essential (primary) hypertension (principal); E03.9 Hypothyroidism, unspecified
CPT/HCPCS: 36415; 80053; 80061; 82043; 82570; 84439; 84443; 84481

== ENCOUNTER → 2025-01-07 | Outpatient (CLI) | payer MEDICARE, SELFPAY ==
[2025-01-07 13:02] LABS: Free T3 2.7 pg/mL (2.18-3.98); PSA,Total- Diagnostic 12.80 ng/mL (0.00-4.00)
== END | disposition home or self-care (01) ==
LOC: MTLAB 09:28
PROVIDERS: PCP Family Medicine; Referring Provider Family Medicine; Visit Provider Family Medicine
DX: E03.9 Hypothyroidism, unspecified (principal); C61 Malignant neoplasm of prostate
CPT/HCPCS: 36415; 84153; 84439; 84443; 84481

== ENCOUNTER → 2025-03-26 | Outpatient (CLI) | payer MEDICARE, SELFPAY ==
[2025-03-26 12:47] LABS: Hematocrit 48.9 % (40-54); Hemoglobin 16.2 g/dL (13.0-16.5); Immature Granulocytes Count 0.020 X10^3/uL (0.0-0.0); Mean Corp Hgb Conc 33.1 g/dL (32-36); Mean Corpuscular Volume 92.8 fL (80-94); Mean Platelet Vol. 11.2 fl (6.2-12.0); NRBC Flagged by Analyzer 0 % (0-5); Platelet Count 176 K/mm3 (150-450); RBC Distribution Width CV 12.0 % (11.6-14.6); RBC Distribution Width SD 41.2 fl (35.1-43.9); Red Blood Count 5.27 M/mm3 (4.6-6.2); White Blood Count 6.8 K/mm3 (4.4-11.0)
[2025-03-26 13:30] LABS: AST(SGOT) 24 U/L (<=37); Alanine Aminotransfer ALT/SGPT 22 U/L (<=46); Albumin, Serum 4.6 g/dL (3.4-4.8); Alkaline Phosphatase 65 U/L (40-129); Anion Gap 10 (5-15); BUN 24 mg/dL (4-19); BUN/Creat Ratio 22.1 RATIO (10-20); Calcium,Total 9.5 mg/dL (7.6-11.0); Carbon Dioxide 28.9 mmol/L (21.0-32.0); Chloride 103 mmol/L (98-108); Cholesterol 142 mg/dL (<=200); Free T3 2.8 pg/mL (2.18-3.98); Globulin 2.9 g/dL (2.2-4.2); Glucose 116 mg/dL (70-99); Low Density Lipoprotein Calc. 77 mg/dL; Potassium 3.9 mmol/L (3.3-5.1); Triglycerides 134 mg/dL; Very Low Density Lipoprotein 27 mg/dL (5-40); cholesterol:hdl ratio screen 3.42
== END | disposition home or self-care (01) ==
LOC: MFPLAB 10:33
PROVIDERS: PCP Family Medicine; Visit Provider Family Medicine
DX: I10 Essential (primary) hypertension (principal); E03.9 Hypothyroidism, unspecified; R53.83 Other fatigue
CPT/HCPCS: 36415; 80053; 80061; 84403; 84439; 84443; 84481; 85025